=== PATIENT | female | born 1945 | race Caucasian/White ===

== ENCOUNTER 2021-08-26 07:02 | Inpatient (IN) | payer OTHER ==
[~2021-08-26] VITALS: Ht 154.9 cm; Wt 66.2 kg
[2021-08-26 08:38] LABS: BASOPHILS % 0.5 % (0.0-2.0); EOSINOPHILS % 3.3 % (0.0-5.0); HEMATOCRIT. 30.9 % (36.0-48.0); HEMOGLOBIN. 10.4 g/dL (12.0-16.0); LYMPHOCYTES % 10.3 % (20.0-50.0); MEAN CORPUSCULAR VOLUME 104.3 fL (81.0-99.0); MEAN PLATELET VOLUME 9.2 fl (7.4-10.4); MONOCYTES % 7.6 % (2.0-8.0); NEUTROPHILS % 78.3 % (40.0-76.0); PLATELET 136 x1000/uL (130-400); RED BLOOD CELL COUNT 2.96 mill/uL (4.2-5.4); RED CELL DISTRIBUTION WIDTH 12.8 % (11.6-14.6)
[2021-08-26 08:45] LABS: CHLORIDE 111 mEq/L (98-107)
[2021-08-26] MEDS ORDERED: MORPHINE SULFATE 4 MG/ML CPJ (NOT FOR IM USE) IV ONE ×2 (09:45→13:00)
[2021-08-26] MEDS ORDERED: ONDANSETRON HCL 4MG/2ML INJ IV PRN (13:30)
[2021-08-26] MEDS ORDERED: NALOXONE HCL 0.4MG/ML VIAL IV PRN (14:15)
[2021-08-26 15:30] VITALS: BP 117/68
[2021-08-26] MEDS: MORPHINE SULFATE 2 MG/ML CPJ (NOT FOR IM USE) IV PRN (18:49)
[2021-08-26 20:00] VITALS: BP 157/58
[2021-08-26] MEDS: AMLODIPINE 5MG TABLET PO SCH (21:16)
[2021-08-27] VITALS: BP 146/53
[2021-08-27] MEDS: MORPHINE SULFATE 2 MG/ML CPJ (NOT FOR IM USE) IV PRN ×2 (00:44→09:12)
[2021-08-27 04:00] VITALS: BP 151/70
[2021-08-27 08:00] VITALS: BP 116/80
[2021-08-27] MEDS: AMLODIPINE 5MG TABLET PO SCH (09:11)
[2021-08-27] MEDS ORDERED: INFLUENZA VACCINE 05/PF 0.5 ML SYRINGE IM ONE (10:00)
[2021-08-27] MEDS ORDERED: PNEUMOCOCCAL 23-VAL P-SAC VAC 0.5 ML IM ONE (10:00)
[2021-08-27 12:00] VITALS: BP 158/66
[2021-08-27] MEDS: HYDROCODONE/ACETAMINOPHEN 5/325MG TABLET PO PRN (15:43)
[2021-08-27 16:00] VITALS: BP_SYST 128; BP_DIAS 58; BP_DIAS 59
[2021-08-27 17:32] LABS: INR 1.2; PROTHROMBIN TIME 12.5 sec (9.6-11.0)
[2021-08-27] MEDS ORDERED: LIDOCAINE HCL/EPINEPHRINE 1%-EPI 1:100,000 20 ML VIAL ONE (18:31)
[2021-08-27] MEDS ORDERED: VANCOMYCIN HCL 1 GM/VIAL ONE (18:31)
[2021-08-27] MEDS ORDERED: POLYMYXIN B SULFATE 500000 UNITS/VIAL ONE (18:31)
[2021-08-27] MEDS ORDERED: ROCURONIUM BROMIDE 10MG/ML VIAL 5ML IV ONE (19:14)
[2021-08-27] MEDS ORDERED: FENTANYL CITRATE/PF 50MCG/ML 2ML VIAL ONE ×2 (19:14→19:40)
[2021-08-27] MEDS ORDERED: MIDAZOLAM HCL 2 MG/2 ML VIAL ONE (19:14)
[2021-08-27] MEDS ORDERED: PHENYLEPHRINE HCL 10 MG/ML 1ML (IV VIAL) IV ONE (19:14)
[2021-08-27] MEDS ORDERED: PROPOFOL 200MG/20ML VIAL IV ONE (19:14)
[2021-08-27] MEDS ORDERED: GLYCOPYRROLATE 0.2 MG/ML 2ML VIAL ONE (19:14)
[2021-08-27] MEDS ORDERED: NEOSTIGMINE METHYLSULFATE 1MG/ML 10 ML VIAL ONE (19:14)
[2021-08-27] MEDS ORDERED: CEFAZOLIN SODIUM 1000MG/VIAL ONE (19:15)
[2021-08-27] MEDS ORDERED: ONDANSETRON HCL 4MG/2ML INJ ONE (19:15)
[2021-08-27] MEDS ORDERED: SODIUM CHLORIDE 0.9% 10ML VIAL ONE (19:15)
[2021-08-27] MEDS ORDERED: DEXAMETHASONE 4MG/ML 1ML VIAL ONE (19:15)
[2021-08-27] MEDS ORDERED: METOCLOPRAMIDE HCL 10MG/2ML VIAL ONE (19:15)
[2021-08-27] MEDS ORDERED: SUCCINYLCHOLINE CHLORIDE 200MG/10ML IV ONE (19:15)
[2021-08-27] MEDS ORDERED: ROPIVACAINE HCL 10MG/ML 20 ML VIAL EPI ONE (19:28)
[2021-08-27] MEDS ORDERED: HYDROMORPHONE HCL/PF 2MG/ML CPJ IV PRN (20:45)
[2021-08-27] MEDS ORDERED: SODIUM CHLORIDE 0.9% 1,000 ML IV ONE (20:45)
[2021-08-27] MEDS ORDERED: MEPERIDINE HCL/PF 25MG/ML CPJ IV PRN (20:45)
[2021-08-27] MEDS ORDERED: ONDANSETRON HCL 4MG/2ML INJ IV PRN (20:45)
[2021-08-27] MEDS ORDERED: MORPHINE SULFATE 2 MG/ML CPJ (NOT FOR IM USE) IV PRN (20:45)
[2021-08-27] MEDS ORDERED: CEFAZOLIN 1000MG PREMIX 50 ML IV SCH (22:00)
[2021-08-27] MEDS: CEFAZOLIN 1000MG PREMIX 50 ML IV SCH (23:00)
[2021-08-28] VITALS: BP 161/72
[2021-08-28] MEDS: AMLODIPINE 5MG TABLET PO SCH ×3 (00:19→21:14)
[2021-08-28] MEDS: HYDROCODONE/ACETAMINOPHEN 5/325MG TABLET PO PRN ×4 (00:20→20:46)
[2021-08-28 04:00] VITALS: BP 141/58
[2021-08-28] MEDS: CEFAZOLIN 1000MG PREMIX 50 ML IV SCH ×3 (05:27→21:14)
[2021-08-28 06:31] LABS: BASOPHILS % 0.4 % (0.0-2.0); EOSINOPHILS % 5.4 % (0.0-5.0); HEMATOCRIT. 28.2 % (36.0-48.0); HEMOGLOBIN. 9.5 g/dL (12.0-16.0); LYMPHOCYTES % 7.5 % (20.0-50.0); MEAN CORPUSCULAR HEMOGLOBIN 35.8 pg (28.0-32.0); MEAN CORPUSCULAR VOLUME 106.5 fL (81.0-99.0); MEAN PLATELET VOLUME 9.8 fl (7.4-10.4); MONOCYTES % 9.8 % (2.0-8.0); NEUTROPHILS % 76.9 % (40.0-76.0); PLATELET 95 x1000/uL (130-400); RED BLOOD CELL COUNT 2.65 mill/uL (4.2-5.4)
[2021-08-28 08:00] VITALS: BP 146/71
[2021-08-28] MEDS: ENOXAPARIN 30MG/0.3ML SYR SUBCUT SCH (10:19)
[2021-08-28 12:00] VITALS: BP 151/73
[2021-08-28 16:00] VITALS: BP 134/70
[2021-08-28] MEDS ORDERED: PNEUMOCOCCAL 23-VAL P-SAC VAC 0.5 ML IM ONE ×2 (17:00→17:30)
[2021-08-28] MEDS ORDERED: INFLUENZA VACCINE 05/PF 0.5 ML SYRINGE IM ONE (17:30)
[2021-08-28 20:00] VITALS: BP 138/78
[2021-08-29] VITALS: BP 143/64
[2021-08-29] MEDS: HYDROCODONE/ACETAMINOPHEN 5/325MG TABLET PO PRN ×2 (00:57→15:36)
[2021-08-29 04:00] VITALS: BP 136/72
[2021-08-29 08:00] VITALS: BP 131/64
[2021-08-29 08:43] LABS: BASOPHILS % 0.4 % (0.0-2.0); EOSINOPHILS % 3.9 % (0.0-5.0); HEMATOCRIT. 27.6 % (36.0-48.0); HEMOGLOBIN. 9.2 g/dL (12.0-16.0); LYMPHOCYTES % 10.8 % (20.0-50.0); MEAN CORPUSCULAR HEMOGLOBIN 35.4 pg (28.0-32.0); MEAN CORPUSCULAR VOLUME 106.3 fL (81.0-99.0); MEAN PLATELET VOLUME 10.1 fl (7.4-10.4); MONOCYTES % 10.8 % (2.0-8.0); NEUTROPHILS % 74.1 % (40.0-76.0); PLATELET 96 x1000/uL (130-400); RED CELL DISTRIBUTION WIDTH 13.1 % (11.6-14.6)
[2021-08-29 08:58] LABS: CHLORIDE 111 mEq/L (98-107)
[2021-08-29] MEDS: ENOXAPARIN 30MG/0.3ML SYR SUBCUT SCH (09:00)
[2021-08-29 09:09] LABS: CLARITY URINE CLOUDY (CLEAR); COLOR URINE YELLOW (YELLOW); KETONES URINE TRACE (NEGATIVE); LEUKOCYTE ESTERASE URINE 1+ (NEGATIVE); NITRITE URINE NEGATIVE (NEGATIVE); OCCULT BLOOD URINE NEGATIVE (NEGATIVE); PROTEIN URINE 1+ (NEGATIVE); SPECIFIC GRAVITY URINE 1.024 (1.005-1.030); UROBILINOGEN URINE 0.2 E.U./dL (0.2-1.0)
[2021-08-29] MEDS ORDERED: CEFTRIAXONE 1 G PREMIX 50 ML IV SCH (09:30)
[2021-08-29] MEDS: AMLODIPINE 5MG TABLET PO SCH ×2 (09:41→21:02)
[2021-08-29] MEDS ORDERED: IOHEXOL-350 100 ML BOTTLE ONE (10:02)
[2021-08-29 12:00] VITALS: BP 127/70
[2021-08-29] MEDS: CEFTRIAXONE 1,000 MG in DEXTROSE 5% WATER 50 ML IV SCH (12:18)
[2021-08-29] MEDS: METOPROLOL TARTRATE 25MG TABLET PO SCH (15:35)
[2021-08-29 16:00] VITALS: BP 137/62
[2021-08-29] MEDS ORDERED: D MANNOSE PO SCH (18:00)
[2021-08-29] MEDS ORDERED: [UNRECOGNIZED DRUG - OTHER] PO SCH (18:00)
[2021-08-29 20:00] VITALS: BP 136/69
[2021-08-30] VITALS: BP 120/60
[2021-08-30 04:00] VITALS: BP 114/63
[2021-08-30] MEDS: HYDROCODONE/ACETAMINOPHEN 5/325MG TABLET PO PRN ×3 (04:46→22:40)
[2021-08-30 06:46] LABS: BASOPHILS % 0.4 % (0.0-2.0); EOSINOPHILS % 4.1 % (0.0-5.0); HEMATOCRIT. 25.6 % (36.0-48.0); HEMOGLOBIN. 8.6 g/dL (12.0-16.0); MEAN CORPUSCULAR HEMOGLOBIN 35.1 pg (28.0-32.0); MEAN CORPUSCULAR VOLUME 105.2 fL (81.0-99.0); MEAN PLATELET VOLUME 9.9 fl (7.4-10.4); MONOCYTES % 9.4 % (2.0-8.0); NEUTROPHILS % 77.1 % (40.0-76.0); PLATELET 112 x1000/uL (130-400); RED BLOOD CELL COUNT 2.43 mill/uL (4.2-5.4)
[2021-08-30 08:00] VITALS: BP 128/63
[2021-08-30] MEDS ORDERED: DOCU250C14 MT (08:51)
[2021-08-30] MEDS: ENOXAPARIN 30MG/0.3ML SYR SUBCUT SCH ×2 (08:51→09:00)
[2021-08-30] MEDS ORDERED: LEVO500T89 MT (08:51)
[2021-08-30] MEDS ORDERED: HYDR-4001 PO (08:51)
[2021-08-30] MEDS: METOPROLOL TARTRATE 25MG TABLET PO SCH (08:52)
[2021-08-30] MEDS ORDERED: APIX2.5T MT (08:52)
[2021-08-30] MEDS ORDERED: HYDR-4001 MT (08:52)
[2021-08-30] MEDS: AMLODIPINE 5MG TABLET PO SCH ×2 (08:53→20:20)
[2021-08-30] MEDS: CEFTRIAXONE 1,000 MG in DEXTROSE 5% WATER 50 ML IV SCH (11:53)
[2021-08-30 12:00] VITALS: BP 131/63
[2021-08-30] MEDS ORDERED: D-MA50PO PO (14:52)
[2021-08-30] MEDS: DOCUSATE SODIUM 250MG CAPSULE PO SCH (15:39)
[2021-08-30 16:00] VITALS: BP 139/62
[2021-08-30] MEDS: D MANNOSE PO SCH (17:31)
[2021-08-30] MEDS: [UNRECOGNIZED DRUG - OTHER] PO SCH (17:31)
[2021-08-30] MEDS: FERROUS SULFATE 325MG TABLET PO SCH (17:50)
[2021-08-30 20:00] VITALS: BP 130/58
[2021-08-31] VITALS: BP 152/61
[2021-08-31 04:00] VITALS: BP 132/52
[2021-08-31 08:00] VITALS: BP 144/65
[2021-08-31] MEDS: METOPROLOL TARTRATE 25MG TABLET PO SCH (08:28)
[2021-08-31] MEDS: DOCUSATE SODIUM 250MG CAPSULE PO SCH (08:28)
[2021-08-31] MEDS: AMLODIPINE 5MG TABLET PO SCH ×2 (08:28→21:28)
[2021-08-31] MEDS: FERROUS SULFATE 325MG TABLET PO SCH ×3 (08:28→18:17)
[2021-08-31] MEDS: ENOXAPARIN 30MG/0.3ML SYR SUBCUT SCH (08:30)
[2021-08-31] MEDS: [UNRECOGNIZED DRUG - OTHER] PO SCH (08:33)
[2021-08-31] MEDS: D MANNOSE PO SCH (08:33)
[2021-08-31] MEDS ORDERED: MAGNESIUM HYDROXIDE 400MG/5ML 30ML UDC PO SCH (10:15)
[2021-08-31] MEDS: HYDROCODONE/ACETAMINOPHEN 5/325MG TABLET PO PRN (10:37)
[2021-08-31 12:00] VITALS: BP 140/65
[2021-08-31] MEDS: CEFTRIAXONE 1,000 MG in DEXTROSE 5% WATER 50 ML IV SCH (12:50)
[2021-08-31 16:00] VITALS: BP 131/63
[2021-08-31] MEDS: ACETAMINOPHEN 325MG TABLET PO PRN (17:27)
[2021-08-31 20:00] VITALS: BP 148/59
[2021-09-01] VITALS: BP 146/54
[2021-09-01] MEDS: ACETAMINOPHEN 325MG TABLET PO PRN (00:17)
[2021-09-01 04:00] VITALS: BP 134/56
[2021-09-01 07:05] LABS: BASOPHILS % 0.6 % (0.0-2.0); EOSINOPHILS % 13.5 % (0.0-5.0); HEMATOCRIT. 26.4 % (36.0-48.0); LYMPHOCYTES % 15.9 % (20.0-50.0); MEAN CORPUSCULAR HEMOGLOBIN 35.9 pg (28.0-32.0); MEAN CORPUSCULAR VOLUME 105.1 fL (81.0-99.0); MEAN PLATELET VOLUME 9.7 fl (7.4-10.4); MONOCYTES % 9.6 % (2.0-8.0); NEUTROPHILS % 60.4 % (40.0-76.0); PLATELET 174 x1000/uL (130-400); RED BLOOD CELL COUNT 2.51 mill/uL (4.2-5.4)
[2021-09-01 08:00] VITALS: BP 131/61
[2021-09-01] MEDS: HYDROCODONE/ACETAMINOPHEN 5/325MG TABLET PO PRN ×4 (09:02→23:42)
[2021-09-01] MEDS: FERROUS SULFATE 325MG TABLET PO SCH ×3 (09:04→18:05)
[2021-09-01] MEDS: AMLODIPINE 5MG TABLET PO SCH ×2 (09:04→20:58)
[2021-09-01] MEDS: DOCUSATE SODIUM 250MG CAPSULE PO SCH (09:05)
[2021-09-01] MEDS: [UNRECOGNIZED DRUG - OTHER] PO SCH (09:06)
[2021-09-01] MEDS: ENOXAPARIN 30MG/0.3ML SYR SUBCUT SCH (09:06)
[2021-09-01] MEDS: D MANNOSE PO SCH (09:06)
[2021-09-01] MEDS: METOPROLOL TARTRATE 25MG TABLET PO SCH (09:08)
[2021-09-01 12:00] VITALS: BP 135/57
[2021-09-01] MEDS: CEFTRIAXONE 1,000 MG in DEXTROSE 5% WATER 50 ML IV SCH (13:13)
[2021-09-01 16:00] VITALS: BP 142/58
[2021-09-01 20:00] VITALS: BP 144/59
[2021-09-02] VITALS: BP 139/61
[2021-09-02 04:00] VITALS: BP 156/62
[2021-09-02 08:00] VITALS: BP 135/63
[2021-09-02] MEDS: [UNRECOGNIZED DRUG - OTHER] PO SCH (09:00)
[2021-09-02] MEDS: D MANNOSE PO SCH (09:00)
[2021-09-02] MEDS: METOPROLOL TARTRATE 25MG TABLET PO SCH (09:48)
[2021-09-02] MEDS: FERROUS SULFATE 325MG TABLET PO SCH ×2 (09:48→13:09)
[2021-09-02] MEDS: HYDROCODONE/ACETAMINOPHEN 5/325MG TABLET PO PRN (09:50)
[2021-09-02] MEDS: AMLODIPINE 5MG TABLET PO SCH (09:51)
[2021-09-02] MEDS: ENOXAPARIN 30MG/0.3ML SYR SUBCUT SCH (09:55)
[2021-09-02] MEDS: DOCUSATE SODIUM 250MG CAPSULE PO SCH (09:56)
[2021-09-02 12:00] VITALS: BP 143/58
[2021-09-02] MEDS: CEFTRIAXONE 1,000 MG in DEXTROSE 5% WATER 50 ML IV SCH (12:50)
[2021-09-02 14:43] VITALS: BP 143/58
== END 2021-09-02 15:10 | disposition home health service (06) | DRG 323 ==
LOC: ER 07:02 → 6EST 11:37 → EDBEDREQTM 12:02 → EDBEDREQ 12:02 → ENRESERV 14:12 → ER 15:19
PROVIDERS: ADMIT Internal Medicine Pulmonary Disease; ATTEND Internal Medicine Pulmonary Disease
PROC: 0SRR0JZ Replacement of Right Hip Joint, Femoral Surface with Synthetic Substitute, Open Approach (ICD-10-PCS; principal; 2021-08-27)
DX: S72.031A Displaced midcervical fracture of right femur, initial encounter for closed fracture (principal); N17.0 Acute kidney failure with tubular necrosis; E44.1 Mild protein-calorie malnutrition; E78.5 Hyperlipidemia, unspecified; I10 Essential (primary) hypertension; E87.8 Other disorders of electrolyte and fluid balance, not elsewhere classified; W01.0XXA Fall on same level from slipping, tripping and stumbling without subsequent striking against object, initial encounter; M19.90 Unspecified osteoarthritis, unspecified site; D64.9 Anemia, unspecified; N39.0 Urinary tract infection, site not specified; Z20.822 Contact with and (suspected) exposure to COVID-19; I73.9 Peripheral vascular disease, unspecified; Z68.27 Body mass index [BMI] 27.0-27.9, adult; Y93.89 Activity, other specified; Y92.091 Bathroom in other non-institutional residence as the place of occurrence of the external cause; Y99.8 Other external cause status
CPT/HCPCS: 36415; 71045; 71275; 73502; 73560; 80048; 80053; 80061; 81003; 83735; 84443; 84484; 85025; 86850; 86900; 87426; 88311; 90686; 90732; 93005; 93306; 93970; 97110; 97116; 97162; 97165; 97530; 99285; C1776; C1893; J0330; J0690; J0696; J1100; J1650; J2175; J2250; J2270; J2370; J2405; J2704; J2710; J2765; J2795; J3010; J3370; J3490; J7040; J7060; Q9967